=== PATIENT | male | born 1930 | race Caucasian/White ===

== ENCOUNTER 2020-12-29 14:54 | Emergency (ER) | payer MEDICARE, BC ==
[~2020-12-29 14:54] MED LIST: Voltaren Gel 1 % TOP
== END 2020-12-29 18:05 | disposition home or self-care (01) ==
LOC: ER1 14:54
DX: M54.16 Radiculopathy, lumbar region (principal); M54.12 Radiculopathy, cervical region; E11.9 Type 2 diabetes mellitus without complications
CPT/HCPCS: 70450; 72125; 72128; 72131; 72192; 99283

== ENCOUNTER 2021-05-22 12:17 | Observation (INO) | payer MEDICARE, BC ==
[~2021-05-22] VITALS: Ht 177.8 cm; Wt 97.5 kg
[2021-05-22 16:24] LABS: HEMOGLOBIN 12.8 gm/dl (14.0-17.5); RED BLOOD COUNT 4.21 M/UL (4.20-5.50); WHITE BLOOD COUNT 6.4 K/UL (4.5-11.0)
[2021-05-22 16:46] LABS: BUN/CREATININE RATIO 20 (0-10)
[2021-05-23] MEDS ORDERED: LORADAMED10 MG PO (02:59)
[2021-05-23] MEDS ORDERED: GLIPIZIDE10 MG PO (03:00)
[2021-05-23] MEDS ORDERED: METFORMIN HCL1000 MG PO (03:00)
[2021-05-23] MEDS ORDERED: PROSTATE THERA1 EACH PO (03:21)
[2021-05-23] MEDS ORDERED: PROBIOTIC1 EAC1 PO (03:22)
[2021-05-23] MEDS ORDERED: DULCOLAX STOOL100 MG PO (03:22)
[2021-05-23] MEDS ORDERED: TYLENOL EXTRA500 MG PO (03:23)
[2021-05-23] MEDS ORDERED: ROBAXIN 750 MG750 MG PO (03:25)
[2021-05-23 03:36] LABS: HEMOGLOBIN 12.7 gm/dl (14.0-17.5); RED BLOOD COUNT 4.41 M/UL (4.20-5.50); WHITE BLOOD COUNT 7.2 K/UL (4.5-11.0)
[2021-05-23 03:56] LABS: BUN/CREATININE RATIO 18 (0-10)
[2021-05-24 04:37] LABS: HEMOGLOBIN 13.5 gm/dl (14.0-17.5); RED BLOOD COUNT 4.51 M/UL (4.20-5.50); WHITE BLOOD COUNT 7.8 K/UL (4.5-11.0)
[2021-05-24 05:39] LABS: BUN/CREATININE RATIO 20 (0-10)
[2021-05-24] MEDS ORDERED: ASPIRIN EC81 MG PO (12:50)
[2021-05-24] MEDS ORDERED: LOPRESSOR 25 MG25 MG PO (12:50)
== END 2021-05-24 17:00 | disposition home or self-care (01) ==
LOC: ER1 12:17 → MED SURG 4 18:03 → CDU 18:03 → MED SURG 4 05-23 01:58
PROVIDERS: Physician Assistant; ADMIT Internal Medicine
DX: R07.89 Other chest pain (principal); I47.1 Supraventricular tachycardia; E11.9 Type 2 diabetes mellitus without complications; H91.90 Unspecified hearing loss, unspecified ear; I08.0 Rheumatic disorders of both mitral and aortic valves; R01.1 Cardiac murmur, unspecified; R09.89 Other specified symptoms and signs involving the circulatory and respiratory systems; K44.9 Diaphragmatic hernia without obstruction or gangrene; Z79.84 Long term (current) use of oral hypoglycemic drugs; Z79.82 Long term (current) use of aspirin; Z79.899 Other long term (current) drug therapy; Z88.0 Allergy status to penicillin; Z88.8 Allergy status to other drugs, medicaments and biological substances; Z20.822 Contact with and (suspected) exposure to COVID-19; Z85.828 Personal history of other malignant neoplasm of skin
CPT/HCPCS: ECHO; 36415; 71045; 78452; 80053; 80061; 82550; 82553; 82962; 83036; 83690; 83735; 83874; 83880; 84439; 84443; 84484; 85025; 93005; 93017; 93306; 99285; A9502; G0378; J2785; U0002

== ENCOUNTER 2021-09-06 21:25 | Emergency (ER) | payer MEDICARE, BC ==
[~2021-09-06 21:25] MED LIST changes: +ASPIRIN EC81 MG PO; +DULCOLAX STOOL100 MG PO; +GLIPIZIDE10 MG PO; +LOPRESSOR 25 MG25 MG PO; +LORADAMED10 MG PO; +METFORMIN HCL1000 MG PO; +PROBIOTIC1 EAC1 PO; +PROSTATE THERA1 EACH PO; +ROBAXIN 750 MG750 MG PO; +TYLENOL EXTRA500 MG PO
[2021-09-06 22:50] LABS: HEMOGLOBIN 12.8 gm/dl (14.0-17.5); RED BLOOD COUNT 4.15 M/UL (4.20-5.50); WHITE BLOOD COUNT 6.8 K/UL (4.5-11.0)
[2021-09-06 23:08] LABS: BUN/CREATININE RATIO 17 (0-10)
[2021-09-07] MEDS ORDERED: CEPHALEXIN500 MG PO (02:14)
== END 2021-09-07 02:24 | disposition home or self-care (01) ==
LOC: ER1 21:25
PROVIDERS: Family Medicine
DX: S02.2XXA Fracture of nasal bones, initial encounter for closed fracture (principal); S01.21XA Laceration without foreign body of nose, initial encounter; S46.911A Strain of unspecified muscle, fascia and tendon at shoulder and upper arm level, right arm, initial encounter; S80.812A Abrasion, left lower leg, initial encounter; S80.811A Abrasion, right lower leg, initial encounter; E11.65 Type 2 diabetes mellitus with hyperglycemia; E11.9 Type 2 diabetes mellitus without complications; Z79.84 Long term (current) use of oral hypoglycemic drugs; Z88.0 Allergy status to penicillin; Z88.8 Allergy status to other drugs, medicaments and biological substances; Z79.82 Long term (current) use of aspirin; W01.0XXA Fall on same level from slipping, tripping and stumbling without subsequent striking against object, initial encounter; Y92.009 Unspecified place in unspecified non-institutional (private) residence as the place of occurrence of the external cause
CPT/HCPCS: 12011; 70450; 70486; 71045; 72125; 73030; 73562; 80053; 81001; 82550; 82553; 83605; 83874; 84484; 85025; 90471; 90715; 93005; 99284